=== PATIENT | female | born 1990 | race Caucasian/White ===

== ENCOUNTER 2016-12-13 01:09 | Emergency (ER) | payer OTHER ==
[2016-12-13] MEDS ORDERED: Fentanyl 100 MCG/2 ML VIAL ONE (01:28)
[2016-12-13] MEDS ORDERED: Ondansetron HCl/PF 4 MG/2 ML Vial ONE (01:28)
[2016-12-13 01:54] LABS: INR-International Normal Ratio 0.9; PTT 27.2 SEC (22.9-36.1); Prothrombin Time 11.8 SEC (12.0-14.7)
[2016-12-13 01:55] LABS: #Basophils 0.1 thou/uL (0.0-0.2); #Eosinphils 0.3 thou/uL (0.0-0.7); #Lymphocytes 3.5 thou/uL (1.20-3.40); #Monocytes 0.8 thou/uL (0.11-0.59); #Neutrophils 5.1 thou/uL (1.40-6.50); %Basophils 0.8 % (0.0-1.0); %Eosinophils 2.8 % (0.0-10.0); %Lymphocytes 35.9 % (21.0-51.0); %Monocytes 7.7 % (0.0-10.0); %Neutrophils 52.8 % (42.0-75.0); Chloride 108 mmol/L (98-107); Hemoglobin 12.2 g/dL (12.0-16.0); Mean Corpuscular HGB CONC 32.6 g/dL (32.0-36.0); Mean Corpuscular Hemoglobin 30.6 pg (27.0-31.0); Mean Corpuscular Volume 93.8 fl (81.0-99.0); Platelet Count 213 thou/uL (130-400); Potassium 3.8 mmol/L (3.5-5.1); RBC Distribution Width 11.2 % (11.5-14.5); Red Blood Cell (RBC) Count 3.97 mill/uL (4.20-5.40); Sodium 140 mmol/L (136-145); White Blood Cell (WBC) Count 9.7 thou/uL (4.8-10.8)
[2016-12-13 02:11] LABS: ALT (SGPT) 10 U/L (8-55); AST (SGOT) 11 U/L (5-34); Albumin 4.2 g/dL (3.5-5.0); Alkaline Phosphatase 77 U/L (40-150); Anion Gap 13 mmol/L (10-20); BUN (Urea Nitrogen) 16 mg/dL (7.0-18.7); Bilirubin, Total 0.2 mg/dL (0.2-1.2); Calc. Creatinine Clearance 0 mL/min (70-130); Calcium 9.1 mg/dL (7.8-10.44); Carbon Dioxide 23 mmol/L (22-29); Estimated GFR-MDRD 84; Glucose 87 mg/dL (70-105); Protein, Total 7.2 g/dL (6.0-8.3)
== END 2016-12-13 02:08 | disposition short-term general hospital (02) ==
LOC: BURERS 01:09
DX: O00.90 Unspecified ectopic pregnancy without intrauterine pregnancy (principal); F32.9 Major depressive disorder, single episode, unspecified; F90.9 Attention-deficit hyperactivity disorder, unspecified type; F17.210 Nicotine dependence, cigarettes, uncomplicated
CPT/HCPCS: 80053; 84702; 85025; 85610; 85730; 94760; 96374; 96375; J2405; J3010

== ENCOUNTER 2017-03-20 06:48 | Emergency (ER) | payer OTHER ==
[2017-03-20 07:50] LABS: Pregnancy Test - Urine (BHCG) Negative (Negative); Pregu Control Background? CLEAR/WHITE (CLR/WHITE); Pregu Control Bar Appear? YES (CONTROL BAR); Specific Gravity 1.027 (1.002-1.036)
[2017-03-20 08:10] LABS: Eosinophils 1 % (0-10); Lymphocytes 28 % (21-51); MDiff Complete? YES; Mean Corpuscular HGB CONC 34.4 g/dL (32.0-36.0); Mean Corpuscular Hemoglobin 30.2 pg (27.0-31.0); Mean Corpuscular Volume 87.8 fl (81.0-99.0); Mean Platelet Volume 8.3 fL (7.4-10.4); Monocytes 4 % (0-10); Neutrophil 66 % (42-75); PLT Morphology Comment Appears Adequate; Platelet Count 223 thou/uL (130-400); RBC Distribution Width 10.9 % (11.5-14.5); RBC Morphology Normal; Red Blood Cell (RBC) Count 4.62 mill/uL (4.20-5.40); White Blood Cell (WBC) Count 7.4 thou/uL (4.8-10.8)
[2017-03-20 08:13] LABS: Bilirubin Moderate (Negative); Blood, Urine Negative (Negative); Clarity Slightly Cloudy (Clear); Glucose, Urine (Dipstick) Negative (Negative); Leukocyte Trace (Negative); Nitrite Negative (Negative); Protein, Urine (Dipstick) 30 mg/dL (Neg-Trace); Specific Gravity, Urine 1.025 (1.005-1.030)
[2017-03-20 08:15] LABS: Bacteria/HPF Rare-Few HPF (None Seen); RBC/HPF 0-3 HPF (0-3); Squamous Epithelial 0-3 HPF (0-3)
[2017-03-22 22:54] LABS: Chlamydia by PCR Not Detected (NotDetected); GC by PCR Not Detected (NotDetected)
== END 2017-03-20 08:24 | disposition home or self-care (01) ==
LOC: BURERS 06:48
DX: B37.3 Candidiasis of vulva and vagina (principal); F32.9 Major depressive disorder, single episode, unspecified; F90.9 Attention-deficit hyperactivity disorder, unspecified type
CPT/HCPCS: 36415; 81003; 81015; 81025; 85025; 87480; 87491; 87510; 87591; 87660; 99283

== ENCOUNTER 2017-12-15 10:07 | Emergency (ER) | payer OTHER | END 2017-12-15 10:35 | disposition home or self-care (01) | LOC: BURERS 10:07 | DX: J20.9 Acute bronchitis, unspecified (principal); F32.9 Major depressive disorder, single episode, unspecified; F90.9 Attention-deficit hyperactivity disorder, unspecified type; F17.210 Nicotine dependence, cigarettes, uncomplicated | CPT/HCPCS: 99283 ==